=== PATIENT | male | born 1960 ===

== ENCOUNTER 2020-12-21 11:35 | Outpatient (CLI) | payer BC, SELFPAY ==
--- NOTE | 2020-12-21 11:39 | USCV_ITS ---
Quinn Lynch Age: 60 Gender: M : 1960 Exam Date: 12/21/2020 11:53 Ordering Phys: Leo Fung MD Technologist: Yumiko Gallego Exam [place]: [facility] [place] Indication: HYPERCALCEMIA Aortic Velocity @ SMA (cm/s) 90.1 RIGHT KIDNEY LEFT KIDNEY Velocity (cm/s) Velocity (cm/s) Sys/Laers Sys/Lares Resistive Index Resistive Index 116.6 / 25.7 0.78 Proximal Renal Artery 64.7 / 20.1 0.69 111.2 / 29.2 0.74 Mid Renal Artery 87.0 / 21.6 0.75 59.9 / 13.7 0.77 Distal Renal Artery 43.1 / 19.3 0.55 55.3 / 18.8 0.66 Hilar 40.1 / 15.6 0.61 33.6 / 14.9 0.56 Upper Pole 39.0 / 15.0 0.62 29.8 / 7.2 0.76 Mid Pole 30.0 / 14.3 0.52 31.9 / 11.5 0.64 Lower Pole 33.5 / 17.7 0.47 1.30 Renal Aortic Ratio 0.97 Accleration Index (cm/sec2) 1048.0 Hilar 0 513.00 Upper Pole 500.00 594.00 Mid Pole 1176.0 0 290.00 Lower Pole 523.00 118.0 Kidney Length (mm) 121.1 FINDINGS No evidence of abdominal aortic aneurysm. Normal size kidneys. No elevation of velocity.there is no evidence of hemodynamically significant right renal artery stenosis. There is no evidence of hemodynamically significant left renal artery stenosis. CONCLUSIONS No sonographic evidence of renal aortic stenosis or aneurysm. Dr. Melba Schuler DO (Electronically Signed) Final Date: 21 December 2020 12:16 S
== END 2020-12-21 11:36 | disposition home or self-care (01) ==
LOC: RAD 11:37
PROVIDERS: Visit Provider Family Medicine
DX: E87.5 Hyperkalemia (principal)
CPT/HCPCS: 93975